=== PATIENT | female | born 1960 | race Two or more races ===

== ENCOUNTER 2021-12-05 12:42 | Emergency (ER) | payer OTHER ==
[~2021-12-05] VITALS: Ht 165.1 cm; Wt 97.1 kg
[2021-12-05] MEDS ORDERED: LIDOCAINE 1% HCL (LOCAL ANESTH.) INJ 20ML MDV IJ ONE (14:45)
[2021-12-05 14:59] VITALS: BP 124/66
[2021-12-05] MEDS ORDERED: CEPH-509 PO (15:03)
== END 2021-12-05 15:16 | disposition home or self-care (01) ==
LOC: ER 12:42
DX: S01.81XA Laceration without foreign body of other part of head, initial encounter (principal); Z79.899 Other long term (current) drug therapy; Z88.0 Allergy status to penicillin; Z88.1 Allergy status to other antibiotic agents; W18.39XA Other fall on same level, initial encounter; Y93.89 Activity, other specified; Y92.89 Other specified places as the place of occurrence of the external cause; Y99.8 Other external cause status
CPT/HCPCS: 12013; 70450; 72125; 99284; J2001